=== PATIENT | male | born 1980 ===

== ENCOUNTER 2020-07-29 13:35 | Outpatient (REF) | payer OTHER, SELFPAY | END 2020-07-29 13:36 | disposition home or self-care (01) | LOC: HO.LAB 13:35 | PROVIDERS: Visit Provider Internal Medicine | DX: Z20.828 Contact with and (suspected) exposure to other viral communicable diseases (principal) | CPT/HCPCS: 87635 ==

== ENCOUNTER 2020-08-09 12:42 | Outpatient (REF) | payer OTHER, SELFPAY | END 2020-08-09 12:43 | disposition home or self-care (01) | LOC: HO.LAB 12:42 | PROVIDERS: Visit Provider Internal Medicine | DX: Z20.828 Contact with and (suspected) exposure to other viral communicable diseases (principal) | CPT/HCPCS: U0003 ==

== ENCOUNTER 2021-01-04 08:02 | Emergency (ER) | payer OTHER, SELFPAY ==
[2021-01-04 08:28] VITALS: BP 149/89; PULSE 82; RESP 16; TEMP 36.2; O2SAT 96; BMI 32.5
--- NOTE | 2021-01-04 08:54 | ED_ITS ---
HPI - Neck Pain/Injury General Chief Complaint: Neck Pain/Injury Stated Complaint: neck pain Time Seen by Provider: 01/04/21 08:39 Source: patient Mode of arrival: ambulatory Limitations: no limitations History of Present Illness HPI Narrative: 40 y/o male with no medical history presents with left sided non- traumatic neck pain that started 2 days ago. It is worse in the mornings and he can barely move his neck. He states by later in the day he is able to move it but it is still sore. He has been taking Tylenol and using Icy Hot patches with some relief. He woke up this morning with worsening pain compared to the last 2 so he came to the ER for further evaluation. He denies trauma or injury. No fevers, headache. MD complaint: neck pain Onset (ago): day(s) (2) Place: home Radiation: left lateral Severity: moderate Quality: aching and spasming Duration: constant and progressively worsening Relieving factors: medication OTC/prescribed Exacerbating factors: movement of neck Context: unknown Associated symptoms: none Treatments prior to arrival: none Related Data Previous Rx's Medication Instructions Recorded cyclobenzaprine 10 mg PO TID PRN #10 tab 01/04/21 ibuprofen 600 mg PO Q8H PRN #20 tab 01/04/21 Allergies Allergy/AdvReac Type Severity Reaction Status Date / Time No Known Allergies Allergy Verified 01/04/21 08:27 Review of Systems Review of Systems: Constitutional: No Fever, No Chills ENT/Mouth: No sore throat, No Rhinorrhea, No Swallowing Difficulty Eyes: No Eye Pain, No Swelling, No Redness Cardiovascular: No Chest Pain, No SOB Respiratory: No Cough, No Sputum Gastrointestinal: No Nausea, No Vomiting Musculoskeletal: No joint pain, + Myalgias Neuro: No Weakness, No Numbness, No Dizziness, No Headache PMFSH Past Medical History Attestation statement: The following information was validated with the patient. Social History Social History Advance Directives: Yes Advance Directives Information Provided: Yes Advance Directives on File: No Physical Exam Vital Signs: Vital Signs: Last Vital Signs Temp 97.2 F 01/04/21 08:28 Pulse 82 01/04/21 08:28 Resp 16 01/04/21 08:28 BP 149/89 H 01/04/21 08:28 Pulse Ox 96 01/04/21 08:28 Body Mass Index 32.5 Appearance: Alert. Oriented X3. No acute distress. HEENT: normal inspection Neck: left lateral neck with soft tissue tenderness and palpable spasm of upper trapezius and SCM. no cervical spinal tenderness. normal ROM with pain with lateral movement CVS: Normal heart rate and rhythm. Pulses normal. Respiratory: No respiratory distress. Skin: Skin warm and dry. Normal skin color. Normal skin turgor. No rashes. Extremities: atraumatic, no edema Neuro: Oriented X 3. No motor deficit. No sensory deficit. Course Course Course Narrative: 40 y/o male presenting with non-traumatic left sided neck pain. Clinical presentation most consistent with mild toricollis and muscular spasm. No headache, AMS or fevers to suggest meningitis. Will treat with NSAID and muscle relaxer and have him follow up with his doctor. He is agreeable with plan. Stable for discharge. Critical Care Time Critical Care Time Critical Care Time: No Discharge Plan Discharge Clinical Impression: Torticollis Patient Disposition: Home, Self-Care Instructions: Spasmodic Torticollis (ED) Additional Instructions: Use heat to your neck several times per day. Slowly and gently work on range of motion in your neck, moving side to side and up and down to help stretch the muscles in spasm. Take the prescribed medications for pain as directed. Rest. No strenuous activity. If you have worsening symptoms come back to the ER for further evaluation. Prescriptions: New cyclobenzaprine 10 mg tablet 10 mg PO TID PRN (Reason: muscle spasm) Qty: 10 RF: 0 ibuprofen 600 mg tablet 600 mg PO Q8H PRN (Reason: pain) Qty: 20 RF: 0 Stand Alone Forms: Work/School Release
== END 2021-01-04 09:19 | disposition home or self-care (01) ==
PROVIDERS: Emergency Provider Emergency Medicine; PCP Internal Medicine
DX: G24.3 Spasmodic torticollis (principal); M54.2 Cervicalgia
CPT/HCPCS: 99283

== ENCOUNTER 2024-06-23 21:00 | Emergency (ER) | payer OTHER, SELFPAY ==
--- NOTE | ~2024-06-23 | CT_ITS ---
EXAMINATION: CT ABDOMEN AND PELVIS WITHOUT CONTRAST CLINICAL INFORMATION: Abdominal pain. COMPARISON: None available. TECHNIQUE: Multidetector volumetric imaging was performed from the superior aspect of the liver through the pubic symphysis. Sagittal and coronal reformatted images were obtained on the technologist's workstation. This CT examination was performed using dose optimization techniques as appropriate, variously including the following: *Automated exposure control *Adjustment of mA and/or kV according to patient size (this includes techniques or standardized protocols for targeted exams where dose is matched to indication/reason for exam; i.e. extremities or head) *Use of iterative reconstruction technique DLP: 642 mGy-cm FINDINGS: LUNG BASES: The visualized lung bases are unremarkable. LIVER, GALLBLADDER, AND BILIARY TREE: The liver is normal in size, shape, and attenuation. No focal hepatic lesion or biliary ductal dilatation is present. The gallbladder is unremarkable with no evidence of radiopaque gallstones, gallbladder wall thickening, or obvious pericholecystic inflammatory changes. PANCREAS: Unremarkable. SPLEEN: Unremarkable. ADRENAL GLANDS: Unremarkable. KIDNEYS AND URETERS: The kidneys are normal in size, shape, and attenuation. No hydronephrosis, hydroureter, or calculi seen. No perinephric stranding. BLADDER: Unremarkable. GASTROINTESTINAL TRACT: There is thickening of distal small bowel extending to the terminal ileum. The appendix is visualized and is within normal limits. ABDOMINAL WALL: No significant hernia is appreciated. LYMPH NODES: Normal. VASCULAR: Unremarkable. PELVIC VISCERA: The pelvic viscera are unremarkable. There is a small amount of free fluid within the pelvis. OSSEOUS STRUCTURES: Unremarkable. CT/CT abdomen pelvis wo IV con IMPRESSION: 1. Thickening of the distal small bowel extending to the terminal ileum. Small amount of free fluid within the pelvis. These findings are consistent with enteritis, which may be infectious or inflammatory in etiology. There is associated small amount of free fluid within the pelvis. 2. The appendix is visualized and is within normal limits. Fleischner guidelines were followed. Electronically signed by: Yony Higgins MD 06/24/2024 02:51 AM EDT
[2024-06-23 21:50] VITALS: BP 134/84; PULSE 76; RESP 20; TEMP 36.9; O2SAT 96; BMI 30.3
[2024-06-23 22:26] LABS: Hematocrit 44.1 % (42.0-52.0); Hemoglobin 15.2 g/dl (14.0-18.0); Mean Corpuscular HGB Conc 34.5 g/dl (31.0-36.0); Mean Corpuscular Hemoglobin 27.4 pg (27.0-33.0); Mean Corpuscular Volume 79.6 fL (80.0-98.0); Mean Platelet Volume 9.5 fL (9.4-12.4); Platelet Count 210 X10*3/uL (160-400); Red Blood Count 5.54 X10*6/uL (4.60-5.80); Red Cell Distribution Width 12.3 % (11.0-16.0)
[2024-06-23 22:41] LABS: Alanine Aminotransferase 36 U/L (0-40); Albumin Level 4.3 g/dL (3.5-5.0); Alkaline Phosphatase 101 U/L (39-117); Anion Gap 12 (12-20); Aspartate Amino Transferase 23 U/L (5-37); Bilirubin Total 0.6 mg/dL (0.0-1.0); Blood Urea Nitrogen 16 mg/dL (9-16); Calcium 9.2 mg/dL (8.4-10.2); Carbon Dioxide 27 mmol/L (22-29); Chloride 103 mmol/L (96-108); Creatinine Clr Calc Pharmacy 140.3; Estimated Glomerular Filt Rate > 60; Glucose Random 274 mg/dL (60-115); Lipase 15 U/L (8-78); Potassium 3.8 mmol/L (3.3-5.1); Sodium 138 mmol/L (135-145); Total Protein 7.3 g/dL (6.5-8.0)
--- NOTE | 2024-06-24 01:33 | ED.ABDPAIN ---
HPI - Abdominal Pain General Chief Complaint: Abdominal Pain Stated Complaint: Abdominal pain Time Seen by Provider: 06/24/24 01:32 Source: patient Mode of arrival: ambulatory Limitations: no limitations History of Present Illness ED Provider: Dr. Koo HPI narrative: Patient is a diabetic that has not taken his medications in 3 months. In addition he states he has abdominal pain that goes from his epigastric area down into his abdomen. He denies fever, diarrhea, vomiting. States the pain is getting worse Onset (ago): day(s) Related Data Previous Rx's ?Medication ?Instructions ?Recorded cyclobenzaprine 10 mg tablet 10 mg PO TID PRN muscle spasm #10 01/04/21 tabs ibuprofen 600 mg tablet 600 mg PO Q8H PRN pain #20 tabs 01/04/21 levofloxacin 500 mg tablet 500 mg PO DAILY 7 days #7 tabs 06/24/24 metformin 1,000 mg tablet 1,000 mg PO BID #30 tabs 06/24/24 metronidazole 500 mg tablet 500 mg PO TID #21 tabs 06/24/24 Allergies Allergy/AdvReac Type Severity Reaction Status Date / Time No Known Allergies Allergy Verified 06/23/24 21:56 Review of Systems Review of Systems Yes all other systems are reviewed and are negative Denies Sensory deficit (Neuro) [facility] Social History Social History Smoked in Last 30 Days: No Use of substances other than those prescribed or required for medical reasons: No Advance Directives: No Advance Directives Information Provided: No Do you have a plan to hurt others: No Plan Physical Exam ED Vital Signs: Vital Signs - 24 hr 06/23/24 21:50 06/24/24 01:39 06/24/24 04:00 Temperature 98.4 F 98.4 F 97.2 F Pulse Rate 76 67 63 Respiratory Rate 20 20 16 Blood Pressure 134/84 158/92 H 143/82 H Pulse Oximetry 96 95 96 Oxygen Delivery Method Room Air Room Air Room Air 06/24/24 05:15 Temperature 97.7 F Pulse Rate 66 Respiratory Rate 20 Blood Pressure 144/78 H Pulse Oximetry 96 Oxygen Delivery Method Room Air BMI result Body Mass Index 30.3 Const Other: obese male in no acute distress Orientation/consciousness: oriented to person and patient oriented x3 Limitations: no limitations HENMT Head: Yes normal to inspection Ears: external ears normal General nose exam: Normal external nose present Mouth: Normal oral and palatal mucosa present and oropharynx normal Throat: Yes posterior oropharynx normal Eyes General: appearance normal, both eyes and all related structures Neck Neck: Yes normal visual inspection Chest Chest palpation & inspection: normal inspection of the chest Resp Auscultation: clear to auscultation bilaterally Cardio Jugular venous distension: no JVD Rate: regular rate Rhythm: regular rhythm Heart sounds: S1 normal heart sound present and S2 normal heart sound present GI Other: on exam and repeat exam patient with right lower abdominal pain with guarding no rebound Auscultation: normal bowel sounds General: Yes no CVA tenderness Back/Spine/Pelvis Back: no CVA tenderness Skin General skin exam: no rashes or lesions noted Neuro General: oriented to person and patient oriented x3 Cranial nerves: Yes CN's II-XII intact bilaterally Motor exam (neuro): 5/5 motor strength present throughout Sensory Exam: No Sensory deficit (Neuro) Extrem General: Yes normal to inspection Psych Appearance: grossly normal Course Reevaluation(s) Reevaluation #1: patient had a CT to rule out appenditis. CT showed terminal ileitis. Will give levaquin and flagyl for the ileitis and restart metformin for his diabetes Time: 05:44 Medical Decision Making Differential Diagnosis Differential Diagnoses: The differential diagnosis associated with the presentation includes (pancreatitis, diverticulitis, appendicitis, UTI, Diabetes hyperglycemia) Admission/Observation Consideration of admission/observation: Escalation of care including admission/observation considered (upon arrival patient considered for admission) Lab Data 06/23/24 22:21 06/23/24 22:21 Labs: Lab Results 06/23/24 06/24/24 Range/Units 22:21 05:13 WBC 11.0 H (4.8-10.8) X10*3/uL RBC 5.54 (4.60-5.80) X10*6/uL Hgb 15.2 (14.0-18.0) g/dl Hct 44.1 (42.0-52.0) % MCV 79.6 L (80.0-98.0) fL MCH 27.4 (27.0-33.0) pg MCHC 34.5 (31.0-36.0) g/dl RDW 12.3 (11.0-16.0) % Plt Count 210 (160-400) X10*3/uL MPV 9.5 (9.4-12.4) fL Absolute Nucleated RBC 0.000 (0.0-0.012) X10*3/uL Nucleated RBC % (auto) 0.0 (0.0-0.2) /100WBC Sodium 138 (135-145) mmol/L Potassium 3.8 (3.3-5.1) mmol/L Chloride 103 (96-108) mmol/L Carbon Dioxide 27 (22-29) mmol/L Anion Gap 12 (12-20) BUN 16 (9-16) mg/dL Creatinine 0.86 (0.5-1.4) mg/dL Estim Creat Clear Calc 140.3 Estimated GFR > 60 Random Glucose 274 H (60-115) mg/dL Calcium 9.2 (8.4-10.2) mg/dL Total Bilirubin 0.6 (0.0-1.0) mg/dL AST 23 (5-37) U/L ALT 36 (0-40) U/L Alkaline Phosphatase 101 (39-117) U/L Total Protein 7.3 (6.5-8.0) g/dL Albumin 4.3 (3.5-5.0) g/dL Lipase 15 (8-78) U/L Urine Color Yellow Urine Appearance Clear Urine pH 6.5 (5.0-9.0) Ur Specific [place] >= 1.030 H (1.005-1.025) Urine Protein Negative (Neg-Trace) mg/dL Urine Glucose (UA) >=1000 H (Negative) mg/dL Urine Ketones 40 (Negative) mg/dL Urine Blood Negative (Negative) Urine Nitrite Negative (Negative) Ur Leukocyte Esterase Negative (Negative) Urine RBC 0-2 (0-2) /HPF Urine WBC 0-5 (0-5) /HPF Ur Squamous Epith Cells 0-2 (0-2) /HPF Urine Bacteria None Seen (None Seen) Hyaline Casts 0-2 (0-2) /LPF Radiology Impression Discussion of test interpretation with radiology: I have reviewed the radiologist's reading. (terminal ileitis on CT, no appendicitis) Chronic Conditions Patient?s care impacted by: Diabetes Social Determinants Patient?s care significantly limited by Social Determinants of Health including: Low income Medications Administered Discontinued Medications Generic Name Dose Route Start Last Admin Trade Name Tony PRN Reason Stop Dose Admin Levofloxacin 500 mg in 100 mls @ 100 mls/hr 06/24/24 03:02 06/24/24 05:12 Levaquin IV 06/24/24 04:01 100 mls/hr ONCE ONE Administration Metronidazole 500 mg in 100 mls @ 100 mls/hr 06/24/24 03:02 06/24/24 05:26 Flagyl IV 06/24/24 04:01 Infused ONCE ONE Infusion Sodium Chloride 1,000 mls @ 999 mls/hr 06/24/24 03:15 06/24/24 05:27 Ns IV 06/24/24 04:15 Infused .Q1H1M EMIGDIO Infusion Insulin Human Lispro 5 unit 06/24/24 03:02 06/24/24 03:56 Insulin Lispro 100 Unit/Ml 3 Ml Vial SUBCUT 06/24/24 03:03 5 unit ONCE ONE Administration Discharge Plan Discharge Clinical Impression: Terminal ileitis, Diabetes mellitus Patient Disposition: Home, Self-Care Additional Instructions: clear liquid diet for 3 days Prescriptions: New metformin 1,000 mg tablet 1,000 mg PO BID Qty: 30 0RF levofloxacin 500 mg tablet 500 mg PO DAILY 7 Days Qty: 7 0RF metronidazole 500 mg tablet 500 mg PO TID Qty: 21 0RF No Action cyclobenzaprine 10 mg tablet 10 mg PO TID PRN (Reason: muscle spasm) Qty: 10 0RF ibuprofen 600 mg tablet 600 mg PO Q8H PRN (Reason: pain) Qty: 20 0RF Referrals: Kenneth Granger III, MD [Primary Care Provider] - 5 days Print Language: Belarusian
[2024-06-24 01:39] VITALS: BP 158/92; PULSE 67; RESP 20; TEMP 36.9; O2SAT 95
[2024-06-24] MEDS: 0.9 % Sodium Chloride 1,000 ML 999 ML IV (03:14)
[2024-06-24] MEDS: metroNIDAZOLE/NS 500 MG/100 ML PIGGYBACK 100 MG IV (03:56)
[2024-06-24] MEDS: Insulin Lispro 100 UNIT/ML 3 ML VIAL SUBCUT (03:56)
[2024-06-24 04:00] VITALS: BP 143/82; PULSE 63; RESP 16; TEMP 36.2; O2SAT 96
[2024-06-24] MEDS: levoFLOXacin/D5W 500 MG/100 ML PIGGYBACK 100 MG IV (05:12)
[2024-06-24 05:15] VITALS: BP 144/78; PULSE 66; RESP 20; TEMP 36.5; O2SAT 96
[2024-06-24 05:24] LABS: Appearance Urine Clear; Color Urine Yellow; Glucose Urine UA >=1000 mg/dL (Negative); Leukocyte Esterase Urine Negative (Negative); Nitrite Urine Negative (Negative); PH 6.5 (5.0-9.0); Specific Gravity - Urine >= 1.030 (1.005-1.025); UMIC TRIGGER UACC YES; Urine Blood Negative (Negative); Urine Ketones 40 mg/dL (Negative); Urine Protein Negative (Neg-Trace)
[2024-06-24 05:29] LABS: Bacteria Urine None Seen (None Seen); Hyaline Casts Urine 0-2 /LPF (0-2); RBC Urine 0-2 /HPF (0-2); Squamous Epithelial Cell Urine 0-2 /HPF (0-2); WBC Urine 0-5 /HPF (0-5)
[2024-06-24 06:00] VITALS: BP 144/78; PULSE 66; RESP 20; TEMP 36.5; O2SAT 96
== END 2024-06-24 06:05 | disposition home or self-care (01) ==
PROVIDERS: Emergency Provider Emergency Medicine; PCP Internal Medicine
DX: K50.00 Crohn's disease of small intestine without complications (principal); R10.2 Pelvic and perineal pain; R11.2 Nausea with vomiting, unspecified; E11.9 Type 2 diabetes mellitus without complications; Z79.84 Long term (current) use of oral hypoglycemic drugs; Z79.899 Other long term (current) drug therapy
CPT/HCPCS: 36415; 74176; 80053; 81001; 83690; 85027; 96361; 96374; 96375; 99284; J1836; J1956